=== PATIENT | female | born 1985 | race Caucasian/White ===

== ENCOUNTER → 2020-10-19 | Outpatient (CLI) | payer MEDICAID ==
[~2020-10-19] MED LIST: SINCALIDE 1.09 MCG in IV NORMAL SALINE 50ML 30 ML IV ONE
--- NOTE | 2020-10-19 12:32 | RAD ---
HEPATOBILIARY SCAN WITH EJECTION FRACTION 10/19/2020 12:28 PM History: abdominal pain, nausea Procedure: Serial static images are obtained of the liver and biliary system in the frontal projectio n following IV administration of 5.5 mCi of Technetium 99m Choletec. After filling of the gallbladd er, 1.09 mcg of sincalide were infused over 30 minutes and dynamic imaging continued over this period . The gallbladder ejection fraction was calculated. Findings: There is prompt hepatic clearance of tracer from the blood pool. There is homogeneous distr ibution throughout the liver. The gallbladder ejection fraction measures 87% (normal gallbladder EF is 35% or greater). IMPRESSION: 1. The cystic duct and common bile duct are patent. Negative for acute cholecystitis. 2. The gallbladder ejection fraction is normal Electronically signed by: Jeremiah Massey MD (10/19/2020 12:30 PM) [id number]
--- NOTE | 2020-10-19 15:19 | RAD ---
Exam performed: Limited right upper quadrant sonogram. Indication: Nausea, vomiting and abdominal pain Date of Service: 10/19/2020 . Comparison:None available Technique: Real-time grayscale imaging of the right upper abdomen is performed and images are obtaine d. Findings: The liver is normal in size and echogenicity without any focal lesions. There is no intra or extrahe patic biliary ductal dilatation. The common bile duct measures2.2 mm. The gallbladder is well diste nded without any shadowing intraluminal calculus, pericholecystic fluid or gallbladder wall thickenin g. The gallbladder wall measures less than 2 mm. Sonographic Blanco's sign is not reported. The rig ht kidney appears unremarkable and measures 10.7 x 4.6 x 3.4 cm in size. There is no hydronephrosis or perinephric fluid collection. Pancreas is normal. Aorta and IVC are patent Impression: 1. Essentially unremarkable right upper quadrant sonogram. Electronically signed by: Liseth Montoya MD (10/19/2020 3:16 PM) [id number]
== END ==
LOC: US 08:58
PROVIDERS: ATTEND Internal Medicine Gastroenterology
DX: K82.8 Other specified diseases of gallbladder (principal); R11.2 Nausea with vomiting, unspecified
CPT/HCPCS: 76705; 78227; A9537; J2805